=== PATIENT | female | born 1975 | race Hispanic/Latino ===

== ENCOUNTER 2023-08-06 12:43 | Emergency (ER) | payer OTHER ==
[~2023-08-06] VITALS: Ht 157.5 cm; Wt 73.3 kg
[2023-08-06] MEDS ORDERED: ACETAMINOPHEN 500 MG TAB PO ONE (15:45)
[2023-08-06] MEDS ORDERED: NAPROSYN500 MG PO (15:49)
[2023-08-06 16:48] VITALS: BP 119/80
== END 2023-08-06 16:50 | disposition home or self-care (01) ==
LOC: ED 12:43
DX: S93.402A Sprain of unspecified ligament of left ankle, initial encounter (principal); W22.8XXA Striking against or struck by other objects, initial encounter
CPT/HCPCS: 73610; 99283-25; A9270